=== PATIENT | female | born 1940 | race Caucasian/White ===

== ENCOUNTER 2017-08-09 12:41 | Observation (INO) ==
--- NOTE | 2017-08-09 12:52 | Emergency Department Note ---
Disposition Clinical Impression: Left hip pain Sciatica Qualifiers: Laterality: left Qualified Code(s): M54.32 - Sciatica, left side Fall Qualifiers: Encounter type: initial encounter Qualified Code(s): W19.XXXA - Unspecified fall, initial encounter Disposition: Admitted As Inpatient Condition: Good Forms: ED Satisfaction Letter Time of Disposition: 17:06 General Adult HPI - General Chief complaint: ED Back Pain/Injury Stated complaint: Back/hip pain Time Seen by Provider: 08/09/17 12:46 Source: patient, EMS Mode of arrival: EMS Limitations: no limitations Nursing Notes Reviewed: Yes Vital Signs Reviewed: Yes - History of Present Illness HPI Narrative: Patient presents emergency room by EMS for evaluation of a fall at home. Patient long-standing left-sided sciatica. Patient was going into the bathroom this morning and felt her leg give way I could always does. She went down to the ground landing on her left hip. Since then she has had persistent pain in that left hip. She also had some mild lower back pain. Patient denies any other symptoms. Denied any preceding symptoms including headache vision changes chest pain shortness of breath, nausea vomiting or diarrhea. Denies any recent illnesses fevers or chills. Denied any closed head injury or trauma this time. Denied being on any blood thinners at this point. Onset (ago): [employer] Location: left, lower extremity Radiation: non-radiation Pain Severity: moderate Quality: aching Consistency: constant Improves with: rest Worsens with: movement Associated symptoms: Reports: denies other symptoms Treatments Prior to Arrival: none - Related Data Home Medications Medication Instructions Recorded Confirmed Albuterol Sulfate [Albuterol 1 puff PO Q4H PRN 02/20/17 02/20/17 Inhaler] Aspirin Enteric Coated [Aspirin EC] 81 mg PO DAILY 02/20/17 02/20/17 Cholecalciferol (D-3) [Vitamin D] 5,000 unit PO DAILY 02/20/17 02/20/17 Diltiazem CD (24hr) [Cardizem CD] 120 mg PO DAILY 02/20/17 02/20/17 Lisinopril [Lisinopril] 2.5 mg PO DAILY 02/20/17 02/20/17 Multivits,Ca,Min/Iron/FA/Lycop 1 tab PO DAILY 02/20/17 02/20/17 [Centrum Men's Tablet] Phytonadione [Vitamin K] 100 mcg PO DAILY 02/20/17 02/20/17 Vitamin B Complex [B Complex] 1 tab PO DAILY 02/20/17 02/20/17 Previous Rx's Medication Instructions Recorded HYDROcodone/Acet 5/325 mg [[place] 1 tab PO Q6H PRN #28 tab 02/20/17 5-325 mg] Allergies Allergy/AdvReac Type Severity Reaction Status Date / Time No Known Allergies Allergy Verified 02/20/17 06:46 All systems ED: reviewed and negative except as stated. Review of Systems: As Per HPI Constitutional: Denies: fever, chills, weakness Cardiovascular: Denies: chest pain, palpitations, dyspnea on exertion Respiratory: Denies: cough, dyspnea Gastrointestinal: Denies: abdominal pain, nausea, vomiting, diarrhea Genitourinary: Denies: dysuria, frequency Musculoskeletal: Reports: back pain. Denies: neck pain Integumentary: Denies: rash Neurological: Denies: headache, weakness Past Medical History - Past Medical History Attestation: Yes The following information was validated with the patient. Source: patient Medical history: Reports: COPD, hyperlipidemia, hypertension, thyroid disease Psychiatric history: Reports: no psych history - Social History Smoking Status: Current every day smoker Smokeless Tobacco Status: No Alcohol use: Reports: none Drug use: Reports: none Physical Exam - General Limitations: no limitations General appearance: alert, in no apparent distress - Head Head exam: atraumatic, normocephalic, normal inspection - Eye Eye exam: Present: normal appearance, PERRL, EOMI - ENT ENT exam: normal exam, normal oropharynx, mucous membranes moist - Neck Neck exam: Present: normal inspection, full ROM, trachea midline - Chest Chest inspection: Present: normal inspection, symmetric chest wall rise - Respiratory Respiratory exam: Present: normal lung sounds bilaterally - Cardiovascular Cardiovascular exam: Present: regular rate, normal rhythm, normal heart sounds - Abdominal Exam Abdominal exam: Present: soft, Non-Tender, normal bowel sounds. Absent: tenderness, distention, guarding, rebound, rigidity, Merrill's sign, Rovsing's sign, tenderness at McBurney's Point - Extremities Exam Extremities exam: Present: normal inspection, full ROM, normal capillary refill. Absent: tenderness, pedal edema - Back Exam Back exam: Present: normal inspection, full ROM, tenderness, paraspinal tenderness, sciatic notch tenderness (L). Absent: CVA tenderness (R), CVA tenderness (L) - Neurological Exam Neurological exam: Present: alert, oriented X3, CN II-XII intact - Skin Skin exam: Present: warm, dry, intact, normal color Course Course Narrative: Patient was walking to the bathroom this morning and felt her legs give out. She went down hitting her left leg and lower back on the ground. Since then she has had persistent pain in her left hip and back. Patient is a history of a bad sciatica on the left lower extremity. She has numbness to the leg at this time. She does not have any gross deformity or injury. She does have the left leg held in contracture this point. She does not have any pain with palpation of the left hip socket at this point she does have some tenderness over the left sciatic notch. She does not have any reproducible numbness tingling or paresthesias to the extremities at this time despite the fact that she feels like there is a tingling sensation in her leg. The stomach does not appear to be infected she does have full range of motion spontaneously without any issue. Patient symptoms otherwise unremarkable. Patient has no signs of pelvic instability. She has normal neurologic evaluation in symptoms at this time. Patient denied any head injury or loss of consciousness. She remembers entire events prior to and after the fall. She is not currently on any blood thinners at this time. Disposition will be determined once full workup treatment course and evaluation are established and completed. Pain medication was provided by IV access during transported by EMS. Patient is otherwise clinically stable at this time. Disposition pending the full workup and evaluation. - Reevaluation(s) Reevaluation #1: Patient has negative imaging of the thoracic and lumbar spine along with left hip. Patient will be provided a repeat pain medication by mouth. No other acute abnormalities noted this time. Patient will be ambulatory 1 symptom control is better at this point. No acute bony abnormalities or fracture noted at this point. Time: 14:35 Reevaluation #2: Patient had pain with ambulation at this time. Patient will be reevaluated with CT imaging of the left hip. Disposition will be determined once his imaging modality is resulted. Oral pain medication was started this time. Time: 15:40 Reevaluation #3: Patient was unable to bear weight on the second attempt. This time. Patient be given IV pain medication this point admission process will be completed for further evaluation treatment. CT imaging is negative of the left hip. Patient is otherwise currently stable left-sided discomfort and pain. Hospitalist Dr. Álvarez. No other recommendations or issues noted. Patient is stable. Admission process will be completed this point patient is still denying any numbness tingling paresthesias bowel or bladder incontinence or saddle anesthesias to the lower extremities at this point. No critical concern at this time for cauda equina syndrome or spinal cord related injury. Time: 17:04 Vital Signs Temperature 97.4 F L 08/09/17 12:44 Pulse Rate 67 08/09/17 12:44 Respiratory Rate 18 08/09/17 12:44 Blood Pressure 147/104 08/09/17 12:44 O2 Sat by Pulse Oximetry 91 08/09/17 12:44 Temperature 97.4 F L 08/09/17 12:44 Pulse Rate 55 08/09/17 16:40 Respiratory Rate 18 08/09/17 16:40 Blood Pressure 149/79 08/09/17 16:40 O2 Sat by Pulse Oximetry 99 08/09/17 16:40 Oxygen Delivery Oxygen Delivery Aerosol Mask Medical Decision Making - MDM Narrative Medical decision making narrative: Left hip pain, mechanical fall, sciatica - Medical Records Medical records reviewed: Yes I reviewed the patient's medical records. - Lab Data Lab results reviewed: Yes I reviewed the patient's lab results. Result diagrams: 08/09/17 13:33 08/09/17 13:33 Lab Results 08/09/17 08/09/17 Range/Units 13:33 13:33 WBC 8.6 (4.3-11.1) K/mcL RBC 4.80 (3.82-4.97) M/mcL Hgb 14.3 (11.5-15.4) g/dL Hct 42.4 (35.3-44.9) % MCV 88.3 (83.0-100.0) fL MCH 29.8 (28.0-33.3) pg MCHC 33.7 (31.6-35.5) g/dL RDW 12.8 (11.5-14.5) % Plt Count 261 (140-400) K/mcL MPV 8.7 L (9.4-12.4) fL Immature Gran % 0.3 (0-4) % Seg Neutrophils % 64.3 % Lymphocytes % 29.2 % Monocytes % 4.8 % Eosinophils % 1.2 % Basophils % 0.2 % Neutrophils # 5.5 (1.6-8.9) K/mcL Lymphocytes # 2.5 (0.6-4.6) K/mcL Monocytes # 0.4 (0.0-1.3) K/mcL Eosinophils # 0.1 (0.0-0.6) K/mcL Basophils # 0.0 (0.0-0.2) K/mcL Sodium 140 (136-145) mEq/L Potassium 3.5 (3.5-5.1) mEq/L Chloride 107 (98-107) mEq/L Carbon Dioxide 28 (23-29) mEq/L BUN 22 (8-23) mg/dL Creatinine 0.75 (0.60-1.20) mg/dL Est GFR ( Amer) > 60 (> 60) Est GFR (Non-Af Amer) > 60 (> 60) BUN/Creatinine Ratio 29 H (6-26) Glucose 80 (70-105) mg/dL Calculated Osmolality 292 (280-300) Calcium 8.7 (8.6-10.3) mg/dL - Radiology Data Radiology results reviewed: Yes I reviewed the patient's radiology results. CT imaging of the thoracic lumbar spine are all unremarkable. CT imaging left hip is stable at this time and no signs of bony abnormality or fracture.
[2017-08-09 13:38] LABS: Basophils % 0.2 %; Eosinophils # 0.1 K/mcL (0.0-0.6); Eosinophils % 1.2 %; Hematocrit 42.4 % (35.3-44.9); Hemoglobin 14.3 g/dL (11.5-15.4); Immature Granulocytes % 0.3 % (0-4); Lymphocytes # 2.5 K/mcL (0.6-4.6); Lymphocytes % 29.2 %; Mean Corpuscular HGB Conc 33.7 g/dL (31.6-35.5); Mean Corpuscular Hemoglobin 29.8 pg (28.0-33.3); Mean Corpuscular Volume 88.3 fL (83.0-100.0); Mean Platelet Volume 8.7 fL (9.4-12.4); Monocytes # 0.4 K/mcL (0.0-1.3); Monocytes % 4.8 %; Neutrophils # 5.5 K/mcL (1.6-8.9); Platelet Count 261 K/mcL (140-400); Red Cell Distribution Width 12.8 % (11.5-14.5); Segmented Neutrophils % 64.3 %
[2017-08-09 13:54] LABS: BUN/Creatinine Ratio 29 (6-26); Blood Urea Nitrogen 22 mg/dL (8-23); Calcium 8.7 mg/dL (8.6-10.3); Carbon Dioxide 28 mEq/L (23-29); Chloride 107 mEq/L (98-107); Glucose 80 mg/dL (70-105); Osmolality,Calculated 292 (280-300); Potassium 3.5 mEq/L (3.5-5.1); Sodium 140 mEq/L (136-145); eGFR For African Americans > 60 (> 60); eGFR For Non-African Americans > 60 (> 60)
[2017-08-09] MEDS ORDERED: *HR* HYDROcodone/Acet 5/325 mg TABLET PO ONE (14:17)
[2017-08-09] MEDS ORDERED: Ipratropium/Albuterol Neb 3 ML IH ONE (16:23)
[2017-08-09] MEDS ORDERED: Gabapentin 100 MG CAPSULE PO ONE (16:32)
[2017-08-09] MEDS ORDERED: Ketorolac 15 MG/ML VIAL IVP ONE (17:02)
[2017-08-09] MEDS ORDERED: Naloxone 0.4 MG/ML INJ IVP PRN (17:33)
[2017-08-09] MEDS ORDERED: Ipratropium/Albuterol Neb 3 ML IH PRN (17:41)
--- NOTE | 2017-08-09 18:07 | Internal Med History&Physical ---
<Sami Pennington - Last Filed: 08/09/17 18:57> Date of Encounter: 08/09/17 Time of Encounter: 17:00 Assessment and Plan (1) Fall Current visit: Yes Status: Acute Acute fall today d/t numbness/tingling in LLE and pain in left hip. Denies hx of falls. Hx of chronic sciatica and fusion of T8-L1. CT of the thoracic spine today shows no acute thoracic or lumbar spine abnormality. Chronic bilateral L5 pars defect with grade 1 anterolisthesis of L5 on S1. CXR of the pelvis shows no acute osseous abnormality. XR of the left shoulder shows no acute osseous abnormality. Minimal degenerative change. Suspected left upper lobe pulmonary nodule. D/t LLE weakness, MRI of head/brain ordered to r/o CVA/ ischemia. Consider Neurology consult based on MRI results and focal LLE weakness /numbness/tingling. Stair-step pain medications for pain mgmt. Falls/safety precautions, up with assist, bed rest w/bedside commode w/assist only. PT/OT consults ordered to assess for possible rehabilitation needs. Pt. discussed w/ Dr. Álvarez who agrees w/plan of care. Pt. is moderate risk for further morbidity d/ t current fall and sx, LLE numbness and tingling, hx, and risk factors including current tobacco abuse. Observation. Qualifiers: Encounter type: initial encounter Qualified Code(s): W19.XXXA - Unspecified fall, initial encounter (2) Left hip pain Current visit: Yes Status: Acute Acute on chronic pain in left hip r/t chronic sciatica. Stair-step pain medications for pain mgmt. PT/OT consults ordered to assess for rehabilitation needs. Falls/safety precautions. (3) Numbness and tingling of left leg Current visit: Yes Status: Acute Acute on chronic left leg numbness and tingling that pt. attributes to sciatica hx. LLE became weak today causing pt. to fall. No other focal weakness or neuro sx in UEs or RLE. Hx of fusion of T8-L1. MRI of head/brain ordered to r/o CVA/ ischemia. Consider Neurology consult based on MRI results. (4) COPD (chronic obstructive pulmonary disease) Current visit: Yes Status: Chronic Hx of chronic COPD. Stable. Lungs clear on auscultation. DuoNebs Q6HR PRN. Supplemental O2 w/titration and SpO2 monitoring PRN. Qualifiers: COPD type: unspecified COPD Qualified Code(s): J44.9 - Chronic obstructive pulmonary disease, unspecified (5) HTN (hypertension) Current visit: Yes Status: Chronic Hx of chronic HTN. Monitor pt. and VS. Continue pts. Cardizem and lisinopril. Qualifiers: Hypertension type: essential hypertension Qualified Code(s): I10 - Essential (primary) hypertension (6) HLD (hyperlipidemia) Current visit: Yes Status: Chronic Hx of chronic HLD but pt. is currently not on statin. Lipid panel in a.m. labs. Consider adding Lipitor to home meds based on lipid panel results. Qualifiers: Hyperlipidemia type: pure hypercholesterolemia Qualified Code(s): E78.00 - Pure hypercholesterolemia, unspecified; E78.0 - Pure hypercholesterolemia (7) Thyroid disease Current visit: Yes Status: Chronic Hx of chronic thyroid disease. TSH and Free T4 ordered. Continue pts. Synthroid. (8) Sciatica Current visit: Yes Status: Chronic Hx of chronic sciatica affecting left hip and LLE. Stair-step pain medications ordered for pain mgmt. PT/OT consults ordered. Qualifiers: Laterality: left Qualified Code(s): M54.32 - Sciatica, left side (9) Tobacco abuse Current visit: Yes Status: Chronic Hx of chronic tobacco abuse. Smokes 1/2 PPD. Denies need for nicotine patch currently and is presently attempting to cut down on her smoking. Will add nicotine patch if pt. requests. (10) DVT prophylaxis Current visit: Yes Status: Acute Heparin 5,000 units SQ Q12 for DVT prophylaxis. Monitor pt. for signs of bleeding. Internal Medicine - H&P: HPI Chief complaint: Fall Admitted From: Emergency Dept Plans for Post Hospital Care: Home History of present illness: Ms. Torre is a 77 year old female w/PMH of COPD, HLD, HTN, and thyroid disease presents from the ED with chief complaint of fall that occurred this morning. Patient states she ambulated to her bathroom and experienced pain and numbness in her left leg which made her leg give out w/o warning. States she tried to catch her self on the bed but fell to the floor. Denies previous falls. Denies dizziness, lightheadedness, syncope, or neuro sx. Hx of left-sided sciatica and pain in LLE. Hx of lower back pain. Reports numbness and tingling in LLE but denies recent illness, fever, chills, nausea, vomiting, headache, changes in vision, unusual bleeding, abdominal pain, diarrhea, constipation, chest pain, palpitations, dizziness, lightheadedness, pre-syncope, or syncope. Past Med Surg Social Fam HX - Past Medical History Source: patient, old records reviewed, obtained from family Medical history: COPD, hyperlipidemia, hypertension, thyroid disease Psychiatric history: no psych history - Past Surgical History Surgical History: orthopedic, other (Fusion from T8-L1. Left T12 pedicle screw medial to pedicle. ) - Social History Smoking Status: Current every day smoker Packs per day: 1/2 PPD Smokeless Tobacco Status: No Alcohol use: none Drug use: none Occupational status: employed Current living situation: Home, With Family Activity Level: Independent ambulation Recent Out of Country Travel Within the Last 8 Weeks: No Exposure or Possible Exposure to Illness During Travel: No - Family History Father Race: Family Member Ethnicity: Non- Living Status: Age at : 64 Cause of : Colon cancer Hx Family Cancer: Yes (Colon) Mother Race: Family Member Ethnicity: Non- Living Status: Age at : 95 Cause of : Old age Hx Family Cardiac Disorders: Yes (CVA) Hx Family Neurologic Disorders: Yes (CVA) Sister Race: Family Member Ethnicity: Non- Living Status: Age at : 69 Cause of : CT Hx Family Cardiac Disorders: Yes (CT) Hx Family Endocrine Disorder: Yes (DM) Internal Medicine - H&P: Meds Albuterol Sulfate [Albuterol Inhaler] 1 puff PO Q4H PRN 02/20/17 [History] Aspirin Enteric Coated [Aspirin EC] 81 mg PO DAILY 02/20/17 [History] Cholecalciferol (D-3) [Vitamin D] 5,000 unit PO DAILY 02/20/17 [History] Diltiazem CD (24hr) [Cardizem CD] 120 mg PO DAILY 02/20/17 [History] Lisinopril [Lisinopril] 2.5 mg PO DAILY 02/20/17 [History] Multivits,Ca,Min/Iron/FA/Lycop [Centrum Men's Tablet] 1 tab PO DAILY 02/20/17 [ History] Phytonadione [Vitamin K] 100 mcg PO DAILY 02/20/17 [History] Vitamin B Complex [B Complex] 1 tab PO DAILY 02/20/17 [History] 3 Allergy/AdvReac Type Severity Reaction Status Date / Time No Known Allergies Allergy Verified 08/09/17 17:20 All Systems PM: A 10-system review of systems was performed and is negative for pertinent findings except as documented above in the HPI. - Constitutional Constitutional: as per HPI, weakness (in LLE), no chills, no fever(s), no night sweats - EENT Eyes: no change in vision, no discharge, no pain, no photophobia Ears: no ear discharge, no ear pain, no tinnitus Nose, mouth and throat: no dysphagia, no nasal discharge, no neck pain, no sore throat - Breasts Breasts: as per HPI - Cardiovascular Cardiovascular ROS IM: no chest pain, no diaphoresis, no dyspnea, no lightheadedness, no palpitations, no syncope - Respiratory Respiratory: no cough, no dyspnea, no wheezing, no excessive phlegm production - Gastrointestinal Gastrointestinal: no abdominal pain, no diarrhea, no hematemesis, no hematochezia, no melena, no nausea, no vomiting - Genitourinary Genitourinary: no change in urinary stream, no dysuria, no flank pain, no hematuria Menstruation: as per HPI - Musculoskeletal Musculoskeletal ROS IM: as per HPI, back pain, muscle weakness (LLE), numbness ( LLE), tingling (LLE) - Integumentary Integumentary IM: no rash, no unusual bruising - Neurological Neurological ROS: as per HPI, numbness (LLE), tingling (LLE), weakness (LLE), no confusion, no convulsions, no focal weakness, no tremor(s) - Psychiatric Psychiatric: as per HPI - Endocrine Endocrine IM: as per HPI - Hematologic/Lymphatic Hematologic/Lymphatic: no easy bruising - Allergic/Immunologic Allergic/Immunologic: as per HPI - Constitutional Vitals: Temp Pulse Resp BP Pulse Ox 97.7 F 60 20 135/80 92 08/09/17 17:42 08/09/17 17:42 08/09/17 17:42 08/09/17 17:42 08/09/17 17:45 General appearance: Present: cooperative, mild distress (Pain w/movement of left leg), A&O X 3, pleasant, answers questions appropriately - Head Head exam: Present: atraumatic, normocephalic - Eye Eye exam: Present: PERRL, conjuntiva pink, sclera anicteric Pupils: Present: PERRL - ENT ENT exam: Present: normal exam - Neck Neck exam general surgery: Present: normal inspection, supple, trachea midline. Absent: lymphadenopathy - Respiratory Respiratory exam: Present: CTAB. Absent: accessory muscle use, rales, rhonchi, wheezes - Cardiovascular Cardiovascular exam: Present: bradycardia, +S1, +S2 - GI/Abdominal GI/Abdominal exam: Present: normal bowel sounds, soft, no peritoneal signs. Absent: distended, tenderness - Rectal Rectal exam: Present: deferred - Additional comments: exam deferred. - Extremities Exam Extremities exam: Present: warm, radial pulses palpable and symmetrical. Absent : calf tenderness, cyanotic, pedal edema - Back Exam Back exam: Present: normal inspection - Neurological Exam Neurological exam: Present: CN II-XII intact, oriented X3, no focal deficits. Absent: pronater drift, facial droop, speech deficit - Psychiatric Psychiatric exam: Present: normal affect, normal mood - Skin Skin exam: Present: dry, intact Internal Med - H&P Results - Labs CBC & Chem 7: 08/09/17 13:33 08/09/17 13:33 - EKG Data EKG shows normal: sinus rhythm Rate: bradycardia - EKG Data Prior EKG available for review: yes EKG comments: 08/09/17 18:18 EKG dated 12/29/16 shows sinus rhythm with RBBB and left anterior fascicular block. EKG dated 08/09/17 shows sinus bradycardia with marked left axis deviation and RBBB. - Diagnostic Studies Other Images Additional comments: Impressions Lumbar Spine CT 08/09/17 12:49 IMPRESSION: 1. No acute thoracic or lumbar spine abnormality. 2. Chronic bilateral L5 pars defects with grade 1 anterolisthesis of L5 on S1. 3. Status post posterior fusion from T8 through L1. The left T12 pedicle screw lies medial to the pedicle but is unchanged from 2011. D/ / Andrae Nunez MD / Andrae Nunez MD Interpreting Provider: Andrae Nunez MD Pelvis X-Ray 08/09/17 12:49 IMPRESSION: No acute osseous abnormality. D/ / Andrae Nunez MD / Andrae Nunez MD Interpreting Provider: Andrae Nunez MD Thoracic Spine CT 08/09/17 12:49 IMPRESSION: 1. No acute thoracic or lumbar spine abnormality. 2. Chronic bilateral L5 pars defects with grade 1 anterolisthesis of L5 on S1. 3. Status post posterior fusion from T8 through L1. The left T12 pedicle screw lies medial to the pedicle but is unchanged from 2012. D/ / Andrae Nunez MD / Andrae Nunez MD Interpreting Provider: Andrae Nunez MD Shoulder X-Ray 08/09/17 14:18 IMPRESSION: 1. No acute osseous abnormality. Minimal degenerative change. 2. Suspected left upper lobe pulmonary nodule. CT imaging of the chest is suggested without contrast. D/ / 08/09/2017 14:54:44 Abiel Carmichael MD / michele Interpreting Provider: Abiel Carmichael MD Hip CT 08/09/17 15:14 IMPRESSION: No acute traumatic injury of the left hip. Mild left hip osteoarthritis. D/ / 08/09/2017 16:10:03 Bakari Menon MD / michele Interpreting Provider: Bakari Menon MD <Yony Álvarez - Last Filed: 08/10/17 07:30> Date of Encounter: 08/10/17 Internal Medicine - H&P: HPI History of present illness: Ms. Torre is a 77 year old female All Systems PM: A 10-system review of systems was performed and is negative for pertinent findings except as documented above in the HPI. - Constitutional Vitals: Temp Pulse Resp BP Pulse Ox 97.8 F 50 14 116/66 96 08/10/17 06:40 08/10/17 06:40 08/10/17 06:40 08/10/17 06:40 08/10/17 06:40 Internal Med - H&P Results - Labs CBC & Chem 7: 08/09/17 13:33 08/09/17 13:33 - Impressions ITS Impressions Brain MRI 08/09/17 18:47 IMPRESSION: No acute intracranial abnormality. Mild multifocal small-vessel ischemic change bilaterally D/ / Robson Delacruz / Robson Delacruz Interpreting Provider: Robson Delacruz - Attending Attestation Patient was seen and examined 6 PM on August 09 independently. Doing well denies chest pain shortness of breasts. Providers is stable, alert oriented 3 , also clear heart rate regular. Abdominal is soft. She has left lower extremity weakness and a numbness persistently. the case discussed with physician law office assistant, I agree with H&P
[2017-08-09] MEDS: *HR* HYDROcodone/Acet 7.5/325 mg TABLET PO PRN (20:02)
[2017-08-10] MEDS: Acetaminophen 325 MG TABLET PO PRN ×2 (00:42→14:17)
[2017-08-10] MEDS: *HR* OxyCODONE/APAP 10/325 TABLET PO PRN ×3 (03:40→16:41)
[2017-08-10] MEDS: *HR* Heparin 5,000 UNIT/ML VIAL SQ SCH ×2 (05:42→17:39)
[2017-08-10] MEDS: Multivit/Ca/Min/Fe/FA 1 TAB TABLET PO SCH (07:51)
[2017-08-10] MEDS: Aspirin Enteric Coated 81 MG Tablet PO SCH (07:51)
[2017-08-10] MEDS: (Phytonadione [Vitamin K] 100 MCG) PO SCH (07:51)
[2017-08-10] MEDS: Diltiazem CD (24hr) 120 MG CAPSULE PO SCH (07:51)
[2017-08-10] MEDS: Cholecalciferol (D-3) 1,000 UNIT TABLET PO SCH (07:51)
[2017-08-10] MEDS: Vitamin B Complex/Vit C/Vit E 1 EACH TABLET PO SCH (07:51)
[2017-08-10 08:24] LABS: Basophils % 0.2 %; Eosinophils # 0.1 K/mcL (0.0-0.6); Eosinophils % 1.4 %; Hematocrit 42.1 % (35.3-44.9); Hemoglobin 13.8 g/dL (11.5-15.4); Immature Granulocytes % 0.2 % (0-4); Lymphocytes # 2.7 K/mcL (0.6-4.6); Mean Corpuscular HGB Conc 32.8 g/dL (31.6-35.5); Mean Corpuscular Hemoglobin 29.1 pg (28.0-33.3); Mean Corpuscular Volume 88.8 fL (83.0-100.0); Mean Platelet Volume 10.2 fL (9.4-12.4); Monocytes # 0.4 K/mcL (0.0-1.3); Monocytes % 4.4 %; Neutrophils # 5.4 K/mcL (1.6-8.9); Platelet Count 234 K/mcL (140-400); Red Blood Count 4.74 M/mcL (3.82-4.97); Red Cell Distribution Width 13.1 % (11.5-14.5); Segmented Neutrophils % 62.8 %
[2017-08-10 08:42] LABS: Alanine Aminotransferase 5 Units/L (7-52); Albumin 3.5 g/dL (3.5-5.7); Albumin/Globulin Ratio 1.2 (1.1-2.2); Alkaline Phosphatase 67 Units/L (34-104); Aspartate Amino Transferase 11 Units/L (13-39); BUN/Creatinine Ratio 27 (6-26); Bilirubin,Total 0.3 mg/dL (0.3-1.0); Blood Urea Nitrogen 24 mg/dL (8-23); Calcium 8.9 mg/dL (8.6-10.3); Carbon Dioxide 33 mEq/L (23-29); Chloride 102 mEq/L (98-107); Chol/HDL Ratio 3.9 (0-4.9); Cholesterol 182 mg/dL (< 200); Glucose 79 mg/dL (70-105); HDL Cholesterol 47 mg/dL (40-59); LDL Cholesterol,Calculated 111 mg/dL (0-99); Magnesium 1.8 mg/dL (1.6-2.6); Osmolality,Calculated 289 (280-300); Potassium 4.2 mEq/L (3.5-5.1); Sodium 138 mEq/L (136-145); Total Protein 6.5 g/dL (6.4-8.9); Triglycerides 119 mg/dL (< 150); eGFR For African Americans > 60 (> 60); eGFR For Non-African Americans > 60 (> 60)
[2017-08-10 10:25] LABS: Thyroid Stimulating Hormone 6.251 mcIU/mL (0.340-5.600)
--- NOTE | 2017-08-10 16:12 | Internal Med Progress Note ---
Date of Encounter: 08/10/17 Time of Encounter: 16:09 - Assessment and plan (1) Fall Current Visit: Yes Status: Acute Assessment and plan: Acute fall yesterday due to numbness/tingling in LLE and pain in left hip. She denies history of falls. She has history of chronic sciatica and fusion of T8- L1. CT of the thoracic spine yesterday showed no acute thoracic or lumbar spine abnormality. Chronic bilateral L5 pars defect with grade 1 anterolisthesis of L5 on S1. CXR of the pelvis showed no acute osseous abnormality. XR of the left shoulder shows no acute osseous abnormality; minimal degenerative change. MRI brain showed no CVA or acute abnormality. No focal neurological deficits at this time. Continue stair-step pain medications for pain management. Falls/safety precautions, up with assist, bed rest w/ bedside commode w/assist only. PT/OT consulted to assess for possible rehabilitation needs. Qualifiers: Encounter type: initial encounter Qualified Code(s): W19.XXXA - Unspecified fall, initial encounter (2) Left hip pain Current Visit: Yes Status: Acute Assessment and plan: Acute on chronic pain likely secondary to sciatica. Continue stair-step pain medications for pain management. PT/OT consulted to assess for rehabilitation needs. Continue fall/safety precautions. (3) Numbness and tingling of left leg Current Visit: Yes Status: Acute Assessment and plan: Likely secondary to sciatica. MRI head with no acute abnormalities. No neurology consult indicated at this time. (4) Sciatica Current Visit: Yes Status: Chronic Assessment and plan: Mangement as per above. Qualifiers: Laterality: left Qualified Code(s): M54.32 - Sciatica, left side (5) COPD (chronic obstructive pulmonary disease) Current Visit: Yes Status: Chronic Assessment and plan: Continue home medications. Qualifiers: COPD type: unspecified COPD Qualified Code(s): J44.9 - Chronic obstructive pulmonary disease, unspecified (6) HLD (hyperlipidemia) Current Visit: Yes Status: Chronic Assessment and plan: LDL = 111. Start low dose simvastatin 20 mg QHS. Qualifiers: Hyperlipidemia type: pure hypercholesterolemia Qualified Code(s): E78.00 - Pure hypercholesterolemia, unspecified; E78.0 - Pure hypercholesterolemia (7) HTN (hypertension) Current Visit: Yes Status: Chronic Assessment and plan: Continue home medications. Qualifiers: Hypertension type: essential hypertension Qualified Code(s): I10 - Essential (primary) hypertension (8) Thyroid disease Current Visit: Yes Status: Chronic Assessment and plan: Elevate TSH with normal free T4. Continue home synthroid. (9) Tobacco abuse Current Visit: Yes Status: Chronic Assessment and plan: Counselled on smoking cessation. Not interested in nicotine patch at this time. (10) DVT prophylaxis Current Visit: Yes Status: Acute Assessment and plan: Continue SC heparin. - Time Spent With Patient less than 15 minutes - Subjective Interval history: Patient had no acute events overnight. She states that she is better this AM. Pain is much better controlled with Tylenol and Percocet. She denies any focal neurological deficits. She has no new complaints. - Constitutional Vitals: Temp Pulse Resp BP Pulse Ox 97.5 F L 51 18 120/57 95 08/10/17 14:31 08/10/17 14:31 08/10/17 14:31 08/10/17 14:31 08/10/17 14:31 General appearance: Present: cooperative, A&O X 3, pleasant, no acute distress, answers questions appropriately - Respiratory Respiratory exam: Present: CTAB. Absent: accessory muscle use, rales, rhonchi, wheezes Additional comments: Normal WOB - Cardiovascular Cardiovascular exam: Present: RRR, +S1, +S2. Absent: diastolic murmur, gallop, rubs, systolic murmur Additional comments: No BLE edema - GI/Abdominal GI/Abdominal exam: Present: normal bowel sounds, soft. Absent: distended, hepatomegaly, mass, splenomegaly, tenderness - Psychiatric Psychiatric exam: Present: normal affect, normal mood. Absent: anxious, depressed - Skin Skin exam: Present: dry, intact, warm. Absent: cyanosis, rash Internal Medicine: Result - Labs CBC & Chem 7: 08/10/17 07:30 08/10/17 07:30 Labs: Short CBC 08/10/17 Range/Units 07:30 WBC 8.6 (4.3-11.1) K/mcL Hgb 13.8 (11.5-15.4) g/dL Hct 42.1 (35.3-44.9) % Plt Count 234 (140-400) K/mcL Neutrophils # 5.4 (1.6-8.9) K/mcL BMP 08/10/17 07:30 Sodium 138 Potassium 4.2 Chloride 102 Carbon Dioxide 33 H BUN 24 H Creatinine 0.88 Glucose 79 Calcium 8.9 Liver Function 08/10/17 Range/Units 07:30 Total Bilirubin 0.3 (0.3-1.0) mg/dL AST 11 L (13-39) Units/L ALT 5 L (7-52) Units/L Alkaline Phosphatase 67 (34-104) Units/L Albumin 3.5 (3.5-5.7) g/dL - Impressions Impressions Brain MRI 08/09/17 18:47 IMPRESSION: No acute intracranial abnormality. Mild multifocal small-vessel ischemic change bilaterally D/ / Robson Delacruz / Robson Delacruz Interpreting Provider: Robson Delacruz Consult Discharge Plan - Plan Referrals: Bernard Lr MD [Primary Care Provider] -
[2017-08-10] MEDS ORDERED: Ondansetron 4 MG/2 ML VIAL IVP PRN (18:30)
[2017-08-10] MEDS: *HR* HYDROcodone/Acet 7.5/325 mg TABLET PO PRN (21:30)
[2017-08-11] MEDS: *HR* OxyCODONE/APAP 10/325 TABLET PO PRN ×3 (00:43→16:32)
[2017-08-11] MEDS: *HR* Heparin 5,000 UNIT/ML VIAL SQ SCH ×2 (05:34→18:09)
[2017-08-11] MEDS: *HR* HYDROcodone/Acet 7.5/325 mg TABLET PO PRN ×3 (05:38→21:17)
[2017-08-11 07:34] LABS: Basophils % 0.4 %; Eosinophils # 0.2 K/mcL (0.0-0.6); Eosinophils % 2.4 %; Hematocrit 41.3 % (35.3-44.9); Hemoglobin 13.5 g/dL (11.5-15.4); Immature Granulocytes % 0.6 % (0-4); Immature Platelets 4.9 % (1.1-6.1); Lymphocytes # 2.3 K/mcL (0.6-4.6); Mean Corpuscular HGB Conc 32.7 g/dL (31.6-35.5); Mean Corpuscular Hemoglobin 29.5 pg (28.0-33.3); Mean Corpuscular Volume 90.4 fL (83.0-100.0); Mean Platelet Volume 10.6 fL (9.4-12.4); Monocytes # 0.3 K/mcL (0.0-1.3); Monocytes % 4.7 %; Neutrophils # 4.1 K/mcL (1.6-8.9); Platelet Count 216 K/mcL (140-400); Red Blood Count 4.57 M/mcL (3.82-4.97); Segmented Neutrophils % 58.9 %
[2017-08-11 07:53] LABS: Alanine Aminotransferase 6 Units/L (7-52); Albumin 3.4 g/dL (3.5-5.7); Albumin/Globulin Ratio 1.2 (1.1-2.2); Alkaline Phosphatase 63 Units/L (34-104); Aspartate Amino Transferase 12 Units/L (13-39); BUN/Creatinine Ratio 25 (6-26); Bilirubin,Total 0.3 mg/dL (0.3-1.0); Blood Urea Nitrogen 21 mg/dL (8-23); Carbon Dioxide 32 mEq/L (23-29); Chloride 101 mEq/L (98-107); Globulin 2.9 g/dL (2.4-3.5); Glucose 78 mg/dL (70-105); Osmolality,Calculated 290 (280-300); Potassium 3.9 mEq/L (3.5-5.1); Sodium 139 mEq/L (136-145); Total Protein 6.3 g/dL (6.4-8.9); eGFR For African Americans > 60 (> 60); eGFR For Non-African Americans > 60 (> 60)
[2017-08-11] MEDS: Multivit/Ca/Min/Fe/FA 1 TAB TABLET PO SCH (08:51)
[2017-08-11] MEDS: Diltiazem CD (24hr) 120 MG CAPSULE PO SCH (08:51)
[2017-08-11] MEDS: Cholecalciferol (D-3) 1,000 UNIT TABLET PO SCH (08:51)
[2017-08-11] MEDS: Vitamin B Complex/Vit C/Vit E 1 EACH TABLET PO SCH (08:54)
[2017-08-11] MEDS: Aspirin Enteric Coated 81 MG Tablet PO SCH (08:54)
[2017-08-11] MEDS: (Phytonadione [Vitamin K] 100 MCG) PO SCH (08:54)
--- NOTE | 2017-08-11 12:32 | Electrocardiograph Report ---
[address] [place], [place] [address] Test Date: 2017-08-09 Pat Name: Glenda Torre Department: 103 Room: 3A42 Gender: F [employer]: TMR : 1940 Requested By: Km Bazzi Order Number: [id number] Reading MD: Alfredo Goldman Measurements Intervals [place] Rate: 56 P: 90 NM: 174 QRS: -38 QRSD: 134 T: 49 QT: 422 QTc: 413 Interpretive Statements SINUS BRADYCARDIA MARKED LEFT AXIS DEVIATION RIGHT BUNDLE BRANCH BLOCK Electronically Signed On 08-11-2017 12:30:57 EDT by Alfredo Goldman
--- NOTE | 2017-08-11 18:39 | Internal Med Progress Note ---
Date of Encounter: 08/11/17 Time of Encounter: 18:37 - Assessment and plan (1) Fall Current Visit: Yes Status: Acute Assessment and plan: Acute fall yesterday due to numbness/tingling in LLE and pain in left hip. She denies history of falls. She has history of chronic sciatica and fusion of T8- L1. CT of the thoracic spine yesterday showed no acute thoracic or lumbar spine abnormality. Chronic bilateral L5 pars defect with grade 1 anterolisthesis of L5 on S1. CXR of the pelvis showed no acute osseous abnormality. XR of the left shoulder shows no acute osseous abnormality; minimal degenerative change. MRI brain showed no CVA or acute abnormality. No focal neurological deficits at this time. Continue stair-step pain medications for pain management. Falls/safety precautions, up with assist, bed rest w/ bedside commode w/assist only. PT/OT consulted to assess for possible rehabilitation needs. SW working on placement. Qualifiers: Encounter type: initial encounter Qualified Code(s): W19.XXXA - Unspecified fall, initial encounter (2) Left hip pain Current Visit: Yes Status: Acute Assessment and plan: Acute on chronic pain likely secondary to sciatica. Continue stair-step pain medications for pain management. PT/OT consulted to assess for rehabilitation needs. Continue fall/safety precautions. SW working on placement. (3) Numbness and tingling of left leg Current Visit: Yes Status: Acute Assessment and plan: Likely secondary to sciatica. MRI head with no acute abnormalities. No neurology consult indicated at this time. (4) Sciatica Current Visit: Yes Status: Chronic Assessment and plan: Mangement as per above. Qualifiers: Laterality: left Qualified Code(s): M54.32 - Sciatica, left side (5) COPD (chronic obstructive pulmonary disease) Current Visit: Yes Status: Chronic Assessment and plan: Continue home medications. Qualifiers: COPD type: unspecified COPD Qualified Code(s): J44.9 - Chronic obstructive pulmonary disease, unspecified (6) HLD (hyperlipidemia) Current Visit: Yes Status: Chronic Assessment and plan: LDL = 111. Started low dose simvastatin 20 mg QHS yesterday. Qualifiers: Hyperlipidemia type: pure hypercholesterolemia Qualified Code(s): E78.00 - Pure hypercholesterolemia, unspecified; E78.0 - Pure hypercholesterolemia (7) HTN (hypertension) Current Visit: Yes Status: Chronic Assessment and plan: Continue home medications. Qualifiers: Hypertension type: essential hypertension Qualified Code(s): I10 - Essential (primary) hypertension (8) Thyroid disease Current Visit: Yes Status: Chronic Assessment and plan: Elevated TSH with normal free T4. Continue home synthroid. (9) Tobacco abuse Current Visit: Yes Status: Chronic Assessment and plan: Counselled on smoking cessation. Not interested in nicotine patch at this time. (10) DVT prophylaxis Current Visit: Yes Status: Acute Assessment and plan: Continue SC heparin. - Time Spent With Patient less than 15 minutes - Subjective Interval history: Patient had no acute events overnight. She states she is doing "OK" this AM except for left leg pain. Pain is controlled with Tylenol and Percocet. She denies any focal neurological deficits. She has no new complaints. - Constitutional Vitals: Temp Pulse Resp BP Pulse Ox 97.7 F 59 14 120/76 92 08/11/17 14:50 08/11/17 14:50 08/11/17 14:50 08/11/17 14:50 08/11/17 14:50 General appearance: Present: cooperative, A&O X 3, pleasant, no acute distress, answers questions appropriately - Respiratory Respiratory exam: Present: CTAB. Absent: accessory muscle use, rales, rhonchi, wheezes Additional comments: Normal WOB - Cardiovascular Cardiovascular exam: Present: RRR, +S1, +S2. Absent: diastolic murmur, gallop, rubs, systolic murmur Additional comments: No BLE edema - GI/Abdominal GI/Abdominal exam: Present: normal bowel sounds, soft. Absent: distended, hepatomegaly, mass, splenomegaly, tenderness - Psychiatric Psychiatric exam: Present: normal affect, normal mood. Absent: anxious, depressed - Skin Skin exam: Present: dry, intact, warm. Absent: cyanosis, rash Internal Medicine: Result - Labs CBC & Chem 7: 08/11/17 05:56 08/11/17 05:56 Labs: Short CBC 08/11/17 Range/Units 05:56 WBC 7.0 (4.3-11.1) K/mcL Hgb 13.5 (11.5-15.4) g/dL Hct 41.3 (35.3-44.9) % Plt Count 216 (140-400) K/mcL Neutrophils # 4.1 (1.6-8.9) K/mcL BMP 08/11/17 05:56 Sodium 139 Potassium 3.9 Chloride 101 Carbon Dioxide 32 H BUN 21 Creatinine 0.84 Glucose 78 Calcium 9.0 Liver Function 08/11/17 Range/Units 05:56 Total Bilirubin 0.3 (0.3-1.0) mg/dL AST 12 L (13-39) Units/L ALT 6 L (7-52) Units/L Alkaline Phosphatase 63 (34-104) Units/L Albumin 3.4 L (3.5-5.7) g/dL Consult Discharge Plan - Plan Referrals: Bernard Lr MD [Primary Care Provider] -
[2017-08-12] MEDS: *HR* Heparin 5,000 UNIT/ML VIAL SQ SCH (05:48)
[2017-08-12 05:58] LABS: Basophils % 0.2 %; Eosinophils # 0.2 K/mcL (0.0-0.6); Eosinophils % 1.6 %; Hematocrit 41.6 % (35.3-44.9); Immature Granulocytes % 0.2 % (0-4); Lymphocytes # 1.9 K/mcL (0.6-4.6); Lymphocytes % 21.2 %; Mean Corpuscular HGB Conc 33.7 g/dL (31.6-35.5); Mean Corpuscular Hemoglobin 29.7 pg (28.0-33.3); Mean Corpuscular Volume 88.3 fL (83.0-100.0); Mean Platelet Volume 10.5 fL (9.4-12.4); Monocytes # 0.3 K/mcL (0.0-1.3); Monocytes % 3.6 %; Neutrophils # 6.7 K/mcL (1.6-8.9); Platelet Count 217 K/mcL (140-400); Red Blood Count 4.71 M/mcL (3.82-4.97); Red Cell Distribution Width 12.9 % (11.5-14.5); Segmented Neutrophils % 73.2 %
[2017-08-12 06:07] LABS: Alanine Aminotransferase 7 Units/L (7-52); Albumin 3.3 g/dL (3.5-5.7); Albumin/Globulin Ratio 1.1 (1.1-2.2); Alkaline Phosphatase 63 Units/L (34-104); Aspartate Amino Transferase 14 Units/L (13-39); BUN/Creatinine Ratio 24 (6-26); Bilirubin,Total 0.3 mg/dL (0.3-1.0); Blood Urea Nitrogen 20 mg/dL (8-23); Calcium 8.8 mg/dL (8.6-10.3); Carbon Dioxide 30 mEq/L (23-29); Chloride 102 mEq/L (98-107); Glucose 82 mg/dL (70-105); Osmolality,Calculated 286 (280-300); Potassium 4.1 mEq/L (3.5-5.1); Sodium 137 mEq/L (136-145); Total Protein 6.3 g/dL (6.4-8.9); eGFR For African Americans > 60 (> 60); eGFR For Non-African Americans > 60 (> 60)
[2017-08-12] MEDS: (Phytonadione [Vitamin K] 100 MCG) PO SCH (07:49)
[2017-08-12] MEDS: Diltiazem CD (24hr) 120 MG CAPSULE PO SCH (07:49)
[2017-08-12] MEDS: Cholecalciferol (D-3) 1,000 UNIT TABLET PO SCH (07:50)
[2017-08-12] MEDS: Multivit/Ca/Min/Fe/FA 1 TAB TABLET PO SCH (07:50)
[2017-08-12] MEDS: *HR* HYDROcodone/Acet 7.5/325 mg TABLET PO PRN ×2 (07:50→15:46)
[2017-08-12] MEDS: Vitamin B Complex/Vit C/Vit E 1 EACH TABLET PO SCH (07:50)
[2017-08-12] MEDS: Aspirin Enteric Coated 81 MG Tablet PO SCH (07:50)
[2017-08-12] MEDS: Acetaminophen 325 MG TABLET PO PRN (12:30)
--- NOTE | 2017-08-12 12:58 | Discharge Summary ---
- NOTES TO OUTPATIENT PROVIDER Notes to Outpatient Provider: Started on low dose opiates for pain, patient is not on any thyroid replacement, TSH is 6 in this admission, we have deferred initiation of synthroid to PCP Orders not resulted at time of discharge: Pending orders 08/13/17 04:00 Complete Blood Count [HEME] AM 0400 Comprehensive Metabolic Panel AM 0400 Date of Encounter: 08/12/17 Time of Encounter: 12:56 - Discharge Diagnosis (1) Sciatica Priority: Primary Status: Chronic Qualifiers: Laterality: left Qualified Code(s): M54.32 - Sciatica, left side (2) Left hip pain Priority: Primary Status: Acute (3) Fall Priority: Primary Status: Acute Qualifiers: Encounter type: initial encounter Qualified Code(s): W19.XXXA - Unspecified fall, initial encounter (4) COPD (chronic obstructive pulmonary disease) Priority: Secondary Status: Chronic Qualifiers: COPD type: unspecified COPD Qualified Code(s): J44.9 - Chronic obstructive pulmonary disease, unspecified (5) HTN (hypertension) Priority: Secondary Status: Chronic Qualifiers: Hypertension type: essential hypertension Qualified Code(s): I10 - Essential (primary) hypertension (6) HLD (hyperlipidemia) Priority: Secondary Status: Chronic Qualifiers: Hyperlipidemia type: pure hypercholesterolemia Qualified Code(s): E78.00 - Pure hypercholesterolemia, unspecified; E78.0 - Pure hypercholesterolemia (7) Thyroid disease Priority: Secondary Status: Chronic (8) DVT prophylaxis Priority: Primary Status: Resolved (9) Tobacco abuse Priority: Secondary Status: Chronic (10) Numbness and tingling of left leg Priority: Primary Status: Acute Hospital course: Ms. Torre is a 77 year old female with medical hsx f COPD, HLD, HTN, Chronic sciatica who presented for acute mechanical fall 08/09/17, d/t numbness/tingling in LLE and pain in left hip. Denied prior hx of falls. Hx of chronic sciatica and fusion of T8-L1. CT of the thoracic spine today shows no acute thoracic or lumbar spine abnormality. Chronic bilateral L5 pars defect with grade 1 anterolisthesis of L5 on S1. CXR of the pelvis shows no acute osseous abnormality. XR of the left shoulder shows no acute osseous abnormality. Minimal degenerative change. Suspected left upper lobe pulmonary nodule. D/t LLE weakness, MRI of head/brain ordered , ruled out CVA/ischemia. She was placed on Stair-step pain medications for pain mgmt. Falls/safety precautions, up with assist, bed rest w/bedside commode w/assist only. PT/OT was consulted and recommend in-patient rehab. She has no neurological deficits, as part of her wor up TSH was elevated, defer management to PCP Her other chronic medical problems are stable She was seen and evaluated this morning, no new complains, pain and tingling improved She is medically stable to be discharged to SNF Discharge discussed with: patient, nurse, case management - Time Spent with Patient Total time spent providing and/or coordinating discharge services: Less than 30 minutes - Discharge Medications Prescriptions: HYDROcodone/Acet 7.5/325 mg [[place] 7.5-325 mg] 1 tab PO Q6HR PRN 5 Days #10 tablet PRN Reason: Moderate Pain Home Medications: Albuterol Sulfate [Albuterol Inhaler] 1 puff PO Q4H PRN 02/20/17 [History] Aspirin Enteric Coated [Aspirin EC] 81 mg PO DAILY 02/20/17 [History] Cholecalciferol (D-3) [Vitamin D] 5,000 unit PO DAILY 02/20/17 [History] Diltiazem CD (24hr) [Cardizem CD] 120 mg PO DAILY 02/20/17 [History] Lisinopril 2.5 mg PO DAILY 02/20/17 [History] Multivits,Ca,Min/Iron/FA/Lycop [Centrum Men's Tablet] 1 tab PO DAILY 02/20/17 [ History] Phytonadione [Vitamin K] 100 mcg PO DAILY 02/20/17 [History] Vitamin B Complex [B Complex] 1 tab PO DAILY 02/20/17 [History] HYDROcodone/Acet 7.5/325 mg [Pe Ell 7.5-325 mg] 1 tab PO Q6HR PRN 5 Days #10 tablet 08/12/17 [Rx] Allergies/Adverse Reactions: 3 Allergy/AdvReac Type Severity Reaction Status Date / Time No Known Allergies Allergy Verified 08/09/17 17:20 Date of admission: 08/09/17 17:13 Primary care physician: Bernard Lr MD Consults: 08/09/17 17:35 Consult to Net Manager [CONS] Routine Reason for SW Consult: Please assess patient for possible home needs for post -discharge planning. 08/09/17 17:37 Consult to Physical Therapy [CONS] Routine Comment: Evaluate, develop and implement POC Reason for Consult: Patient had fall today resulting in pain in left hip and inability to ambulate. Denies falls hx. Imaging shows fxs. Please assess patient for ambulation strength, stability , safety, and possible home assistive/ rehabilitation placement needs for post-discharge planning. Does patient have active BEDREST order?: Yes Is patient medically & hemodynamically stable?: Yes Patient assessed for mobility or mobilized this visit?: No 08/09/17 18:07 Consult to Nutrition [CONS] Routine Comment: Consulting Provider: NUTRITION Reason for Dietary Consult: MST Score Other:: weight loss, lack of appetite Consult to Net Manager [CONS] Routine Reason for SW Consult: May need rehab or home health, unable to ambulate. 08/10/17 16:13 Consult to Net Manager [CONS] Routine Reason for SW Consult: LLE Sciatica. Consider acute rehab placement. Discharging clinician: Ron العلي Anticipated date of discharge: 08/12/17 - Constitutional Vitals: Temp Pulse Resp BP Pulse Ox 98 F 69 14 104/67 93 08/12/17 07:36 08/12/17 07:36 08/12/17 07:36 08/12/17 07:36 08/12/17 08:04 General appearance: Present: cooperative, A&O X 3, pleasant, no acute distress, answers questions appropriately - Head Head exam: Present: atraumatic, normocephalic - Eye Eye exam: Present: PERRL, conjuntiva pink, sclera anicteric Pupils: Present: PERRL - Neck Neck exam general surgery: Present: supple, trachea midline. Absent: lymphadenopathy - Respiratory Respiratory exam: Present: CTAB. Absent: accessory muscle use, rales, rhonchi, wheezes - Cardiovascular Cardiovascular exam: Present: RRR, +S1, +S2. Absent: diastolic murmur, gallop, rubs, systolic murmur - GI/Abdominal GI/Abdominal exam: Present: normal bowel sounds, soft, no peritoneal signs. Absent: distended, tenderness - Extremities Exam Extremities exam: Present: warm, radial pulses palpable and symmetrical. Absent : calf tenderness, cyanotic, pedal edema - Neurological Exam Neurological exam: Present: alert, CN II-XII intact, oriented X3, no focal deficits. Absent: pronater drift, facial droop, speech deficit - Skin Skin exam: Present: dry, intact - Patient Status Disposition: Transfer SNF Condition: Good Functional capacity at discharge: independent ambulation Overall status at discharge: patient is progressing back to baseline - Discharge Instructions Follow Up With: Bernard Lr MD [Primary Care Provider] - - Diet and Activity Activity: resume usual activities as tolerated Diet: low salt diet
--- NOTE | 2017-08-12 13:01 | Physician Discharge Referral ---
ExtendedCare Referral Info Transfer To: [facility] Provider in Charge: Duglas العلي Provider in Charge after Transfer: PCP Institutional Level of Care: Skilled - Diagnosis (1) Sciatica Priority: Secondary Status: Chronic (2) Left hip pain Priority: Primary Status: Acute (3) Fall Priority: Primary Status: Acute (4) COPD (chronic obstructive pulmonary disease) Priority: Secondary Status: Chronic (5) HTN (hypertension) Priority: Secondary Status: Chronic (6) HLD (hyperlipidemia) Priority: Secondary Status: Chronic (7) Thyroid disease Priority: Secondary Status: Chronic (8) DVT prophylaxis Priority: Secondary Status: Resolved (9) Tobacco abuse Priority: Secondary Status: Chronic (10) Numbness and tingling of left leg Priority: Primary Status: Acute Prognosis: Fair Aware of Diagnosis: Patient Aware of Prognosis: Patient - Transfer Medications Prescriptions: HYDROcodone/Acet 7.5/325 mg [[place] 7.5-325 mg] 1 tab PO Q6HR PRN 5 Days #10 tablet PRN Reason: Moderate Pain Home Medications: Albuterol Sulfate [Albuterol Inhaler] 1 puff PO Q4H PRN 02/20/17 [History] Aspirin Enteric Coated [Aspirin EC] 81 mg PO DAILY 02/20/17 [History] Cholecalciferol (D-3) [Vitamin D] 5,000 unit PO DAILY 02/20/17 [History] Diltiazem CD (24hr) [Cardizem CD] 120 mg PO DAILY 02/20/17 [History] Lisinopril 2.5 mg PO DAILY 02/20/17 [History] Multivits,Ca,Min/Iron/FA/Lycop [Centrum Men's Tablet] 1 tab PO DAILY 02/20/17 [ History] Phytonadione [Vitamin K] 100 mcg PO DAILY 02/20/17 [History] Vitamin B Complex [B Complex] 1 tab PO DAILY 02/20/17 [History] HYDROcodone/Acet 7.5/325 mg [[place] 7.5-325 mg] 1 tab PO Q6HR PRN 5 Days #10 tablet 08/12/17 [Rx] Allergies/Adverse Reactions: 3 Allergy/AdvReac Type Severity Reaction Status Date / Time No Known Allergies Allergy Verified 08/09/17 17:20 - Respiratory Orders Smoking Cessation: Smoking cessation has been advised. For more information, call the [place] Tobacco Quit Line at 5-933-ZSCC-NOW. - Advance Directives Code Status: Full Code - Diet Orders No Added Salt (TUTU) CERTIFICATION: I certify that the transfer of the above named patient to an Extended Care Facility is necessary for the continuing treatment of the diagnosis listed. The above information is true and accurate reflection of patient's current condition. Confidential - Redisclosure prohibited without a patient's written consent.
[2017-08-12 16:01] VITALS: BP 119/75
== END 2017-08-12 16:57 ==
LOC: EMEROO 12:41 → 3ANU 12:41 → SUATTDRO 17:13 → 3ANU 17:31
PROVIDERS: ADMIT Hospitalist; ATTEND Internal Medicine

== ENCOUNTER 2017-10-31 23:06 | Observation (INO) ==
[2017-10-31] MEDS ORDERED: Orphenadrine 60 MG/2 ML VIAL IM ONE (23:30)
[2017-10-31 23:45] LABS: Bilirubin,Urine Negative (Negative); Blood,Urine Negative (Negative); Clarity,Urine Clear (Clear); Color,Urine Yellow (Yellow); Glucose,Urine (UA) Normal (Normal); Ketones,Urine Negative (Negative); Leukocyte Esterase,Urine Negative (Negative); Nitrite,Urine Negative (Negative); Protein,Urine Negative (Neg-Trace); Specific Gravity,Urine 1.019 (1.010-1.025); Urobilinogen,Urine Normal (Normal)
--- NOTE | 2017-10-31 23:45 | Emergency Department Note ---
Disposition Clinical Impression: Sciatica of left side Disposition: Admitted As Inpatient Time of Disposition: 23:00 Back Pain HPI - General Chief Complaint: ED Back Pain/Injury Stated Complaint: Back pain Time Seen by Provider: 10/31/17 23:15 Source: patient, EMS Limitations: no limitations Nursing Notes Reviewed: Yes Vital Signs Reviewed: Yes - History of Present Illness HPI Narrative: Patient is a 77-year-old female who presents to [facility] ED with a chief complaint of severe sciatica. Patient states it started getting worse 6 days ago. She started needing to use her walker again and then today just could not get up anymore. States she has been on gabapentin and started back on Percocet. She has a follow-up with Dr. Guzman on November 13. Patient denies any nausea, vomiting, fever or chills. No chest pain, difficulty breathing, abdominal pain, problems with urination or bowel movements. Patient denies any actual leg weakness, numbness of the inner thighs or urinary retention or incontinence. Pt Subjective Complaint: back pain Onset (ago): day(s) () Duration: gradually worsening Similar Symptoms Previously: Yes Location: Other (L sacroiliac) Pain Severity: severe Quality: sharp Radiation: none Improves with: none Worsens with: movement Associated symptoms: Reports: difficulty walking. Denies: numbness, weakness, incontinence of bowel/bladder, fever, chills, abdominal pain, dysuria Treatments prior to arrival: prescription analgesics - Related Data Home Medications Medication Instructions Recorded Confirmed Albuterol Sulfate [Albuterol 1 puff PO Q4H PRN 02/20/17 11/01/17 Inhaler] Aspirin Enteric Coated [Aspirin EC] 81 mg PO DAILY 02/20/17 11/01/17 Cholecalciferol (D-3) [Vitamin D] 5,000 unit PO DAILY 02/20/17 11/01/17 Diltiazem CD (24hr) [Cardizem CD] 120 mg PO DAILY 02/20/17 11/01/17 Lisinopril 2.5 mg PO DAILY 02/20/17 11/01/17 Multivits,Ca,Min/Iron/FA/Lycop 1 tab PO DAILY 02/20/17 11/01/17 [Centrum Men's Tablet] Phytonadione [Vitamin K] 100 mcg PO DAILY 02/20/17 11/01/17 Vitamin B Complex [B Complex] 1 tab PO DAILY 02/20/17 11/01/17 Previous Rx's Medication Instructions Recorded HYDROcodone/Acet 7.5/325 mg [[place] 1 tab PO Q6HR PRN 5 Days #10 tablet 08/12/17 7.5-325 mg] Allergies Allergy/AdvReac Type Severity Reaction Status Date / Time No Known Allergies Allergy Verified 08/09/17 17:20 All systems ED: reviewed and negative except as stated. Past Medical History - Past Medical History Attestation: Yes The following information was validated with the patient. Source: patient Medical history: Reports: COPD, hyperlipidemia, hypertension, thyroid disease Surgical history: Reports: orthopedic, other (Fusion from T8-L1. Left T12 pedicle screw medial to pedicle. ) Psychiatric history: Reports: no psych history - Social History Smoking Status: Current every day smoker Smokeless Tobacco Status: No Alcohol use: Reports: none Drug use: Reports: none Physical Exam - General Limitations: no limitations General appearance: alert - Head Head exam: atraumatic, normocephalic, normal inspection - Eye Eye exam: Present: EOMI - ENT ENT exam: normal exam - Neck Neck exam: Present: normal inspection, trachea midline - Chest Chest inspection: Present: normal inspection, symmetric chest wall rise - Respiratory Respiratory exam: Present: normal lung sounds bilaterally - Cardiovascular Cardiovascular exam: Present: regular rate, normal rhythm, normal heart sounds - Abdominal Exam Abdominal exam: Present: soft, Non-Tender. Absent: tenderness, distention, guarding, rebound, rigidity - Extremities Exam Extremities exam: Absent: pedal edema - Expanded Lower Extremity Exam Hip/Pelvis exam: Present: tenderness (with palpation of L SI region ) Neurovascular/Tendon exam: Present: normal capillary refill. Absent: motor deficit, sensory deficit - Back Exam Back exam: Present: sciatic notch tenderness (L) - Neurological Exam Neurological exam: Present: alert - Psychiatric Psychiatric exam: Present: normal affect, normal mood - Skin Skin exam: Present: warm, dry, intact, normal color Course Course Narrative: Patient seen and examined. Severe sciatica in which patient is unable to ambulate at this time. She has been in inpatient rehabilitation previously but over the last 6 days has gotten much worse and states she is unable to walk at this time. We will admit for placement. Basic lab work ordered. - Reevaluation(s) Reevaluation #1: labwork unremarkable. Discussed with hospitalist Dr. Lopez who has accepted patient for admission. Time: 23:00 Vital Signs Temperature 97.2 F L 10/31/17 23:10 Pulse Rate 76 10/31/17 23:10 Respiratory Rate 16 10/31/17 23:10 Blood Pressure 115/65 10/31/17 23:10 O2 Sat by Pulse Oximetry 93 10/31/17 23:10 Temperature 97.9 F 11/01/17 03:59 Pulse Rate 65 11/01/17 03:59 Respiratory Rate 16 11/01/17 03:59 Blood Pressure 117/62 11/01/17 03:59 O2 Sat by Pulse Oximetry 93 11/01/17 03:59 Oxygen Delivery Oxygen Delivery Room Air Back Pain/Injury - Medical Records Medical records reviewed: Yes I reviewed the patient's medical records. - Lab Data Lab results reviewed: Yes I reviewed the patient's lab results. Result diagrams: 10/31/17 23:42 10/31/17 23:42 Lab Results 10/31/17 10/31/17 10/31/17 Range/Units 23:38 23:42 23:42 WBC 7.0 (4.3-11.1) K/mcL RBC 4.77 (3.82-4.97) M/mcL Hgb 14.5 (11.5-15.4) g/dL Hct 43.0 (35.3-44.9) % MCV 90.1 (83.0-100.0) fL MCH 30.4 (28.0-33.3) pg MCHC 33.7 (31.6-35.5) g/dL RDW 13.5 (11.5-14.5) % Plt Count 222 (140-400) K/mcL MPV 9.6 (9.4-12.4) fL Immature Gran % 0.3 (0-4) % Seg Neutrophils % 69.3 % Lymphocytes % 24.1 % Monocytes % 4.7 % Eosinophils % 1.3 % Basophils % 0.3 % Neutrophils # 4.9 (1.6-8.9) K/mcL Lymphocytes # 1.7 (0.6-4.6) K/mcL Monocytes # 0.3 (0.0-1.3) K/mcL Eosinophils # 0.1 (0.0-0.6) K/mcL Basophils # 0.0 (0.0-0.2) K/mcL Sodium 136 (136-145) mEq/L Potassium 4.0 (3.5-5.1) mEq/L Chloride 103 (98-107) mEq/L Carbon Dioxide 28 (23-29) mEq/L BUN 21 (8-23) mg/dL Creatinine 0.91 (0.60-1.20) mg/dL Est GFR ( Amer) > 60 (> 60) Est GFR (Non-Af Amer) 60 (> 60) BUN/Creatinine Ratio 23 (6-26) Glucose 104 (70-105) mg/dL Calculated Osmolality 285 (280-300) Calcium 9.0 (8.6-10.3) mg/dL Urine Color Yellow (Yellow) Urine Clarity Clear (Clear) Urine pH 5.0 (5.0-8.0) pH Units Ur Specific [place] 1.019 (1.010-1.025) Urine Protein Negative (Neg-Trace) mg/dL Urine Glucose (UA) Normal (Normal) mg/dL Urine Ketones Negative (Negative) mg/dL Urine Blood Negative (Negative) Urine Nitrite Negative (Negative) Urine Bilirubin Negative (Negative) Urine Urobilinogen Normal (Normal) mg/dL Ur Leukocyte Esterase Negative (Negative) Ur Culture Indicated? NO (NO)
[2017-11-01 00:16] LABS: BUN/Creatinine Ratio 23 (6-26); Blood Urea Nitrogen 21 mg/dL (8-23); Carbon Dioxide 28 mEq/L (23-29); Chloride 103 mEq/L (98-107); Glucose 104 mg/dL (70-105); Osmolality,Calculated 285 (280-300); Sodium 136 mEq/L (136-145); eGFR For African Americans > 60 (> 60); eGFR For Non-African Americans 60 (> 60)
[2017-11-01 00:27] LABS: Basophils % 0.3 %; Eosinophils # 0.1 K/mcL (0.0-0.6); Eosinophils % 1.3 %; Hemoglobin 14.5 g/dL (11.5-15.4); Immature Granulocytes % 0.3 % (0-4); Lymphocytes # 1.7 K/mcL (0.6-4.6); Lymphocytes % 24.1 %; Mean Corpuscular HGB Conc 33.7 g/dL (31.6-35.5); Mean Corpuscular Hemoglobin 30.4 pg (28.0-33.3); Mean Corpuscular Volume 90.1 fL (83.0-100.0); Mean Platelet Volume 9.6 fL (9.4-12.4); Monocytes # 0.3 K/mcL (0.0-1.3); Monocytes % 4.7 %; Neutrophils # 4.9 K/mcL (1.6-8.9); Platelet Count 222 K/mcL (140-400); Red Blood Count 4.77 M/mcL (3.82-4.97); Red Cell Distribution Width 13.5 % (11.5-14.5); Segmented Neutrophils % 69.3 %
--- NOTE | 2017-11-01 00:53 | Emergency Department Note ---
Disposition Clinical Impression: Sciatica of left side Disposition: Admitted As Inpatient Condition: Good General Adult HPI - General Chief complaint: ED Back Pain/Injury Stated complaint: Back pain Time Seen by Provider: 10/31/17 23:15 Source: patient, EMS Limitations: no limitations Nursing Notes Reviewed: Yes Vital Signs Reviewed: Yes - History of Present Illness Pain Scale: 10 - Related Data Home Medications Medication Instructions Recorded Confirmed Albuterol Sulfate [Albuterol 1 puff PO Q4H PRN 02/20/17 11/01/17 Inhaler] Aspirin Enteric Coated [Aspirin EC] 81 mg PO DAILY 02/20/17 11/01/17 Cholecalciferol (D-3) [Vitamin D] 5,000 unit PO DAILY 02/20/17 11/01/17 Diltiazem CD (24hr) [Cardizem CD] 120 mg PO DAILY 02/20/17 11/01/17 Lisinopril 2.5 mg PO DAILY 02/20/17 11/01/17 Multivits,Ca,Min/Iron/FA/Lycop 1 tab PO DAILY 02/20/17 11/01/17 [Centrum Men's Tablet] Phytonadione [Vitamin K] 100 mcg PO DAILY 02/20/17 11/01/17 Vitamin B Complex [B Complex] 1 tab PO DAILY 02/20/17 11/01/17 Previous Rx's Medication Instructions Recorded HYDROcodone/Acet 7.5/325 mg [[place] 1 tab PO Q6HR PRN 5 Days #10 tablet 08/12/17 7.5-325 mg] Allergies Allergy/AdvReac Type Severity Reaction Status Date / Time No Known Allergies Allergy Verified 08/09/17 17:20 Past Medical History - Past Medical History Medical history: Reports: COPD, hyperlipidemia, hypertension, thyroid disease Surgical history: Reports: orthopedic, other (Fusion from T8-L1. Left T12 pedicle screw medial to pedicle. ) Psychiatric history: Reports: no psych history - Social History Smoking Status: Current every day smoker Smokeless Tobacco Status: No Alcohol use: Reports: none Drug use: Reports: none Physical Exam - General Limitations: no limitations General appearance: alert Course Vital Signs Temperature 97.2 F L 10/31/17 23:10 Pulse Rate 76 10/31/17 23:10 Respiratory Rate 16 10/31/17 23:10 Blood Pressure 115/65 10/31/17 23:10 O2 Sat by Pulse Oximetry 93 10/31/17 23:10 Temperature 97.9 F 11/01/17 03:59 Pulse Rate 65 11/01/17 03:59 Respiratory Rate 16 11/01/17 03:59 Blood Pressure 117/62 11/01/17 03:59 O2 Sat by Pulse Oximetry 93 11/01/17 03:59 Oxygen Delivery Oxygen Delivery Room Air Medical Decision Making - Lab Data Result diagrams: 10/31/17 23:42 10/31/17 23:42 Lab Results 10/31/17 10/31/17 10/31/17 Range/Units 23:38 23:42 23:42 WBC 7.0 (4.3-11.1) K/mcL RBC 4.77 (3.82-4.97) M/mcL Hgb 14.5 (11.5-15.4) g/dL Hct 43.0 (35.3-44.9) % MCV 90.1 (83.0-100.0) fL MCH 30.4 (28.0-33.3) pg MCHC 33.7 (31.6-35.5) g/dL RDW 13.5 (11.5-14.5) % Plt Count 222 (140-400) K/mcL MPV 9.6 (9.4-12.4) fL Immature Gran % 0.3 (0-4) % Seg Neutrophils % 69.3 % Lymphocytes % 24.1 % Monocytes % 4.7 % Eosinophils % 1.3 % Basophils % 0.3 % Neutrophils # 4.9 (1.6-8.9) K/mcL Lymphocytes # 1.7 (0.6-4.6) K/mcL Monocytes # 0.3 (0.0-1.3) K/mcL Eosinophils # 0.1 (0.0-0.6) K/mcL Basophils # 0.0 (0.0-0.2) K/mcL Sodium 136 (136-145) mEq/L Potassium 4.0 (3.5-5.1) mEq/L Chloride 103 (98-107) mEq/L Carbon Dioxide 28 (23-29) mEq/L BUN 21 (8-23) mg/dL Creatinine 0.91 (0.60-1.20) mg/dL Est GFR ( Amer) > 60 (> 60) Est GFR (Non-Af Amer) 60 (> 60) BUN/Creatinine Ratio 23 (6-26) Glucose 104 (70-105) mg/dL Calculated Osmolality 285 (280-300) Calcium 9.0 (8.6-10.3) mg/dL Urine Color Yellow (Yellow) Urine Clarity Clear (Clear) Urine pH 5.0 (5.0-8.0) pH Units Ur Specific [place] 1.019 (1.010-1.025) Urine Protein Negative (Neg-Trace) mg/dL Urine Glucose (UA) Normal (Normal) mg/dL Urine Ketones Negative (Negative) mg/dL Urine Blood Negative (Negative) Urine Nitrite Negative (Negative) Urine Bilirubin Negative (Negative) Urine Urobilinogen Normal (Normal) mg/dL Ur Leukocyte Esterase Negative (Negative) Ur Culture Indicated? NO (NO) Attestation Statement - Attestation Attestation: I, Carl Small MD, personally evaluated this patient and discussed their management with the resident physician. I reviewed the resident's note and agree with the documented findings, medical decision making, and plan of care. 77-year-old female with history of left sciatica presents to the emergency department with a complaint of exacerbation of her back pain about one week ago. The past week she has had these a walker to get around this evening the pain became acutely worse and she has been unable to ambulate even with a walker. Pain is in the left SI joint area and radiates down the left leg. Some numbness and tingling sensation in the left leg which she has had previously. She has had injections for this pain and also has been in rehabilitation a few months ago. On examination patient is a well-developed well-nourished well-appearing elderly female in no acute distress. She is alert and oriented 3. There is no cyanosis or diaphoresis. There is tenderness palpation over the left SI joint area. Patient holds her hip flexed with her knee up to her chest and states this is the only way she can get relief from the pain. Breath sounds are clear and equal bilaterally. Heart regular rate and rhythm. Abdomen soft and nontender with normal bowel sounds. Labs reviewed. The hospitalist, Dr. Lopez, was consulted and accepted admission of the patient.
[2017-11-01] MEDS ORDERED: Acetaminophen 325 MG TABLET PO PRN (02:32)
[2017-11-01] MEDS ORDERED: *HR* HYDROcodone/Acet 5/325 mg TABLET PO PRN (02:32)
[2017-11-01] MEDS ORDERED: Naloxone 0.4 MG/ML INJ IVP PRN (02:32)
[2017-11-01] MEDS ORDERED: *HR* FentaNYL (PF) 100 MCG/2 ML VIAL IVP ONE (02:34)
[2017-11-01] MEDS ORDERED: *HR* HYDROcodone/Acet 7.5/325 mg TABLET PO PRN (02:36)
--- NOTE | 2017-11-01 02:42 | Internal Med History&Physical ---
Date of Encounter: 11/01/17 Time of Encounter: 02:00 Internal Medicine - H&P: HPI Chief complaint: Left leg pain Admitted From: Home Plans for Post Hospital Care: Home History of present illness: Ms. Torre is a 77 year old female present to ER for left leg pain. Past medical history is significant for hypertension, chronic sciatic pain. Patient has chronic sciatic pain on left side. She is following up with pain management as outpatient. Patient to present to ER today because the pain is getting worse. Patient cannot walk. Patient described the pain is from her low back radiated down to left leg. Patient denies numbness/tingling/urinary or fecal incontinence. Patient was treated with muscle relaxant in the emergency room but the pain cannot relieve. Patient was admitted for further pain management because she cannot take care of herself on this pain. Past Med Surg Social Fam HX - Past Medical History Medical history: COPD, hyperlipidemia, hypertension, thyroid disease Psychiatric history: no psych history - Past Surgical History Surgical History: orthopedic, other Additional surgical history: back 2000,tubal,colonoscopy,eye lid,celiotomy - Social History Smoking Status: Current every day smoker Packs per day: 1 Smokeless Tobacco Status: No Alcohol use: none Drug use: none - Family History Father Family Member Ethnicity: Non- Living Status: Hx Family Cancer: Yes (Colon) Mother Family Member Ethnicity: Non- Living Status: Cause of : Heart disease Hx Family Cardiac Disorders: Yes (CVA) Hx Family Neurologic Disorders: Yes (CVA) Sister Family Member Ethnicity: Non- Living Status: Still Living Hx Family Cardiac Disorders: Yes (SC) Hx Family Endocrine Disorder: Yes (DM) Internal Medicine - H&P: Meds Albuterol Sulfate [Albuterol Inhaler] 1 puff PO Q4H PRN 02/20/17 [History] Aspirin Enteric Coated [Aspirin EC] 81 mg PO DAILY 02/20/17 [History] Cholecalciferol (D-3) [Vitamin D] 5,000 unit PO DAILY 02/20/17 [History] Diltiazem CD (24hr) [Cardizem CD] 120 mg PO DAILY 02/20/17 [History] Lisinopril 2.5 mg PO DAILY 02/20/17 [History] Multivits,Ca,Min/Iron/FA/Lycop [Centrum Men's Tablet] 1 tab PO DAILY 02/20/17 [ History] Phytonadione [Vitamin K] 100 mcg PO DAILY 02/20/17 [History] Vitamin B Complex [B Complex] 1 tab PO DAILY 02/20/17 [History] HYDROcodone/Acet 7.5/325 mg [[place] 7.5-325 mg] 1 tab PO Q6HR PRN 5 Days #10 tablet 08/12/17 [Rx] 3 Allergy/AdvReac Type Severity Reaction Status Date / Time No Known Allergies Allergy Verified 08/09/17 17:20 All Systems PM: A 10-system review of systems was performed and is negative for pertinent findings except as documented above in the HPI. - Constitutional Vitals: Temp Pulse Resp BP Pulse Ox 97.6 F 64 16 116/69 91 11/01/17 02:23 11/01/17 02:23 11/01/17 02:23 11/01/17 02:23 11/01/17 02:23 General appearance: Present: mild distress, A&O X 3, answers questions appropriately - Head Head exam: Present: atraumatic, normocephalic - Eye Eye exam: Present: PERRL, conjuntiva pink, sclera anicteric Pupils: Present: PERRL - Neck Neck exam general surgery: Present: supple, trachea midline. Absent: lymphadenopathy - Respiratory Respiratory exam: Present: CTAB. Absent: accessory muscle use, rales, rhonchi, wheezes - Cardiovascular Cardiovascular exam: Present: RRR, +S1, +S2. Absent: diastolic murmur, gallop, rubs, systolic murmur - GI/Abdominal GI/Abdominal exam: Present: normal bowel sounds, soft, no peritoneal signs. Absent: distended, tenderness - Extremities Exam Extremities exam: Present: warm, radial pulses palpable and symmetrical. Absent : calf tenderness, cyanotic, pedal edema - Neurological Exam Neurological exam: Present: CN II-XII intact, oriented X3, no focal deficits. Absent: pronater drift, facial droop, speech deficit - Skin Skin exam: Present: dry, intact Internal Med - H&P Results - Labs CBC & Chem 7: 10/31/17 23:42 10/31/17 23:42 - Assessment and plan (1) Sciatica Current Visit: No Status: Chronic Assessment and plan: Patient has a history of sciatica pain. Patient is getting worse now. - Place patient on pain medication for pain control. - PTOT evaluation Qualifiers: Laterality: left Qualified Code(s): M54.32 - Sciatica, left side (2) COPD (chronic obstructive pulmonary disease) Current Visit: No Status: Chronic Assessment and plan: Continue home medication albuterol inhaler as needed. Patient has no wheezing at this point. Qualifiers: COPD type: unspecified COPD Qualified Code(s): J44.9 - Chronic obstructive pulmonary disease, unspecified (3) HTN (hypertension) Current Visit: No Status: Chronic Assessment and plan: Continue home medication lisinopril Qualifiers: Hypertension type: essential hypertension Qualified Code(s): I10 - Essential (primary) hypertension (4) DVT prophylaxis Current Visit: No Status: Resolved Assessment and plan: Heparin subcutaneously (5) Tobacco abuse Current Visit: No Status: Chronic Assessment and plan: Smoking cessation education. Patient said she does not need nicotine patch. - Time Spent With Patient Total time spent is greater than 50% in coordination of care (as documented) at patient's floor/unit and/or counseling patient: 40 minutes Greater than 35 minutes
[2017-11-01] MEDS: *HR* Heparin 5,000 UNIT/ML VIAL SQ SCH ×2 (05:57→16:28)
[2017-11-01] MEDS: (Phytonadione [Vitamin K] 100 MCG) PO SCH (10:38)
[2017-11-01] MEDS: Cholecalciferol (D-3) 1,000 UNIT TABLET PO SCH (10:39)
[2017-11-01] MEDS: Multivit/Ca/Min/Fe/FA 1 TAB TABLET PO SCH (10:39)
[2017-11-01] MEDS: Aspirin Enteric Coated 81 MG Tablet PO SCH (10:39)
--- NOTE | 2017-11-01 11:59 | Event Note ---
Date of Encounter: 11/01/17 Time of Encounter: 12:00 seen and assessed. Agree wiht plan per night time hospitalist. Pain control PRN anfd follow pT/OT recs for sciatica. Start prednisone BID. Consult pain management
[2017-11-01] MEDS: *HR* OxyCODONE Immed Rel 5 MG TABLET PO PRN ×2 (12:04→19:54)
[2017-11-01] MEDS: predniSONE 20 MG TABLET PO SCH (16:28)
[2017-11-02] MEDS: *HR* OxyCODONE Immed Rel 5 MG TABLET PO PRN (03:20)
[2017-11-02] MEDS: *HR* Heparin 5,000 UNIT/ML VIAL SQ SCH (05:49)
[2017-11-02] MEDS: (Phytonadione [Vitamin K] 100 MCG) PO SCH (08:04)
[2017-11-02] MEDS: Multivit/Ca/Min/Fe/FA 1 TAB TABLET PO SCH (08:07)
[2017-11-02] MEDS: Cholecalciferol (D-3) 1,000 UNIT TABLET PO SCH (08:07)
[2017-11-02] MEDS: Aspirin Enteric Coated 81 MG Tablet PO SCH (08:07)
[2017-11-02] MEDS: predniSONE 20 MG TABLET PO SCH (08:07)
--- NOTE | 2017-11-02 10:56 | Internal Med Progress Note ---
Date of Encounter: 11/02/17 Time of Encounter: 10:55 - Assessment and plan (1) Sciatica Current Visit: No Status: Chronic Assessment and plan: Patient has a history of sciatica pain s/p epidural injections int he past. spoke with pain management. Start on oral steroids. Obtain PT evaluation. will need outpatient follow up with pain mgmt Qualifiers: Laterality: left Qualified Code(s): M54.32 - Sciatica, left side (2) COPD (chronic obstructive pulmonary disease) Current Visit: No Status: Chronic Assessment and plan: Continue home medication albuterol inhaler as needed. Patient has no wheezing at this point. Qualifiers: COPD type: unspecified COPD Qualified Code(s): J44.9 - Chronic obstructive pulmonary disease, unspecified (3) HTN (hypertension) Current Visit: No Status: Chronic Assessment and plan: Continue home medication lisinopril Qualifiers: Hypertension type: essential hypertension Qualified Code(s): I10 - Essential (primary) hypertension (4) DVT prophylaxis Current Visit: No Status: Resolved Assessment and plan: Heparin subcutaneously (5) Tobacco abuse Current Visit: No Status: Chronic Assessment and plan: Smoking cessation education. Patient said she does not need nicotine patch. - Time Spent With Patient Total time spent is greater than 50% in coordination of care (as documented) at patient's floor/unit and/or counseling patient: - Subjective Interval history: No acute events overnight - Constitutional Vitals: Temp Pulse Resp BP Pulse Ox 98.1 F 83 18 116/72 92 11/02/17 07:13 11/02/17 07:13 11/02/17 07:13 11/02/17 07:13 11/02/17 08:12 General appearance: Present: mild distress, A&O X 3, answers questions appropriately - Head Head exam: Present: atraumatic, normocephalic - Eye Eye exam: Present: PERRL, conjuntiva pink, sclera anicteric Pupils: Present: PERRL - Neck Neck exam general surgery: Present: supple, trachea midline. Absent: lymphadenopathy - Respiratory Respiratory exam: Present: CTAB. Absent: accessory muscle use, rales, rhonchi, wheezes - Cardiovascular Cardiovascular exam: Present: RRR, +S1, +S2. Absent: diastolic murmur, gallop, rubs, systolic murmur - GI/Abdominal GI/Abdominal exam: Present: normal bowel sounds, soft, no peritoneal signs. Absent: distended, tenderness - Extremities Exam Extremities exam: Present: warm, radial pulses palpable and symmetrical. Absent : calf tenderness, cyanotic, pedal edema - Neurological Exam Neurological exam: Present: CN II-XII intact, oriented X3, no focal deficits. Absent: pronater drift, facial droop, speech deficit - Skin Skin exam: Present: dry, intact Internal Medicine: Result - Labs CBC & Chem 7: 10/31/17 23:42 10/31/17 23:42 Consult Discharge Plan - Plan Referrals: richard,Bernard Santana MD [Primary Care Provider] -
[2017-11-02 15:42] VITALS: BP 98/59
--- NOTE | 2017-11-02 16:34 | Discharge Summary ---
- NOTES TO OUTPATIENT PROVIDER Notes to Outpatient Provider: Follow up with outpatient physical therapy and pain management Date of Encounter: 11/02/17 Time of Encounter: 16:00 - Discharge Diagnosis (1) Sciatica Priority: Primary Status: Chronic Assessment and Plan: 77 year old female present to ER for left leg pain. Past medical history is significant for hypertension, chronic sciatic pain. Patient has chronic sciatic pain on left side. She follows up with pain management as outpatient. Patient to presented to the ER because the pain was getting worse and she could not walk. Patient described the pain as from her low back radiated down to left leg. Patient has a history of sciatica pain s/p epidural injections in the past. She was assessed with an acute flare of her sciatica. We spoke with pain management who recommended a short course of oral steroids, outpatient evaluation and PT evaluation. She was seen by physical therapy who recommended activities/motions with her walker to alleviate the pain and recommended outpatient physical therapy. She was discharged in a stable condition Qualifiers: Laterality: left Qualified Code(s): M54.32 - Sciatica, left side (2) COPD (chronic obstructive pulmonary disease) Priority: Secondary Status: Chronic Qualifiers: COPD type: unspecified COPD Qualified Code(s): J44.9 - Chronic obstructive pulmonary disease, unspecified (3) HTN (hypertension) Priority: Secondary Status: Chronic Qualifiers: Hypertension type: essential hypertension Qualified Code(s): I10 - Essential (primary) hypertension (4) DVT prophylaxis Priority: Secondary Status: Resolved (5) Tobacco abuse Priority: Secondary Status: Chronic Hospital course: Ms. Torre is a 77 year old female - Time Spent with Patient Total time spent providing and/or coordinating discharge services: - Discharge Medications Prescriptions: predniSONE [PredniSONE] 40 mg PO DAILY 5 Days #10 tablet Home Medications: Albuterol Sulfate [Albuterol Inhaler] 1 puff PO Q4H PRN 02/20/17 [History] Aspirin Enteric Coated [Aspirin EC] 81 mg PO DAILY 02/20/17 [History] Cholecalciferol (D-3) [Vitamin D] 5,000 unit PO DAILY 02/20/17 [History] Diltiazem CD (24hr) [Cardizem CD] 120 mg PO DAILY 02/20/17 [History] Lisinopril 2.5 mg PO DAILY 02/20/17 [History] Multivits,Ca,Min/Iron/FA/Lycop [Centrum Men's Tablet] 1 tab PO DAILY 02/20/17 [ History] Phytonadione [Vitamin K] 100 mcg PO DAILY 02/20/17 [History] Vitamin B Complex [B Complex] 1 tab PO DAILY 02/20/17 [History] HYDROcodone/Acet 5/325 mg [[place] 5-325 mg] 1 tab PO Q8H PRN 11/01/17 [History] predniSONE [PredniSONE] 40 mg PO DAILY 5 Days #10 tablet 11/02/17 [Rx] Allergies/Adverse Reactions: 3 Allergy/AdvReac Type Severity Reaction Status Date / Time No Known Allergies Allergy Verified 11/01/17 10:53 Date of admission: 11/01/17 01:35 Primary care physician: Bernard Lr MD Consults: 11/01/17 02:35 Consult to Occupational Therapy [CONS] Routine Comment: Evaluate, develop and implement POC Reason for Consult: Sciatic pain Does patient have active BEDREST order?: No Is patient medically & hemodynamically stable?: Yes Consult to Physical Therapy [CONS] Routine Comment: Evaluate, develop and implement POC Reason for Consult: Sciatica pain Does patient have active BEDREST order?: No Is patient medically & hemodynamically stable?: Yes Consult to Centerpuncher [CONS] Routine Reason for SW Consult: Cannot take care herself at home 11/01/17 12:10 Consult to Pain Management [CONS] Routine Consulting Provider: Pain Mgt Interventional Sharmila Reason for Consult: sciatica. Patient of dr glass Call Completed: Yes - Constitutional Vitals: Temp Pulse Resp BP Pulse Ox 98.0 F 73 16 98/59 96 11/02/17 15:41 11/02/17 15:41 11/02/17 15:41 11/02/17 15:41 11/02/17 15:41 General appearance: Present: mild distress, A&O X 3, answers questions appropriately - Head Head exam: Present: atraumatic, normocephalic - Eye Eye exam: Present: PERRL, conjuntiva pink, sclera anicteric Pupils: Present: PERRL - Neck Neck exam general surgery: Present: supple, trachea midline. Absent: lymphadenopathy - Respiratory Respiratory exam: Present: CTAB. Absent: accessory muscle use, rales, rhonchi, wheezes - Cardiovascular Cardiovascular exam: Present: RRR, +S1, +S2. Absent: diastolic murmur, gallop, rubs, systolic murmur - GI/Abdominal GI/Abdominal exam: Present: normal bowel sounds, soft, no peritoneal signs. Absent: distended, tenderness - Extremities Exam Extremities exam: Present: warm, radial pulses palpable and symmetrical. Absent : calf tenderness, cyanotic, pedal edema - Neurological Exam Neurological exam: Present: CN II-XII intact, oriented X3, no focal deficits. Absent: pronater drift, facial droop, speech deficit - Skin Skin exam: Present: dry, intact - Patient Status Disposition: Home, Self-Care Functional capacity at discharge: uses cane/walker Overall status at discharge: patient is progressing back to baseline - Discharge Instructions Follow Up With: Bernard Lr MD [Primary Care Provider] -
== END 2017-11-02 17:09 | disposition home or self-care (01) ==
LOC: 3NENU 23:06 → EMEROO 23:06 → 3NENU 11-01 01:45
PROVIDERS: ADMIT Internal Medicine; ATTEND Internal Medicine

== ENCOUNTER 2021-08-04 02:06 | Observation (INO) ==
[2021-08-04 02:45] LABS: Basophils % 0.1 %; Eosinophils % 0.3 %; Hematocrit 41.9 % (35.3-44.9); Hemoglobin 14.1 g/dL (11.5-15.4); Immature Granulocytes % 0.2 % (0-4); Lymphocytes # 1.6 K/mcL (0.6-4.6); Lymphocytes % 12.6 %; Mean Corpuscular HGB Conc 33.7 g/dL (31.6-35.5); Mean Corpuscular Hemoglobin 30.3 pg (28.0-33.3); Mean Corpuscular Volume 90.1 fL (83.0-100.0); Mean Platelet Volume 9.5 fL (9.4-12.4); Monocytes # 0.7 K/mcL (0.0-1.3); Monocytes % 5.4 %; Neutrophils # 10.1 K/mcL (1.6-8.9); Platelet Count 212 K/mcL (140-400); Red Blood Count 4.65 M/mcL (3.82-4.97); Red Cell Distribution Width 13.6 % (11.5-14.5); Segmented Neutrophils % 81.4 %; White Blood Count 12.4 K/mcL (4.3-11.1)
[2021-08-04 03:06] LABS: Alanine Aminotransferase 6 Units/L (7-52); Albumin 3.9 g/dL (3.5-5.7); Albumin/Globulin Ratio 1.6 (1.1-2.2); Alkaline Phosphatase 70 Units/L (34-104); Aspartate Amino Transferase 15 Units/L (13-39); BUN/Creatinine Ratio 33 (6-26); Bilirubin,Indirect 0.4 mg/dL (0.0-1.0); Bilirubin,Total 0.4 mg/dL (0.3-1.0); Blood Urea Nitrogen 27 mg/dL (8-23); Carbon Dioxide 28 mEq/L (23-29); Chloride 104 mEq/L (98-107); Globulin 2.5 g/dL (2.4-3.5); Glucose 123 mg/dL (70-105); Lipase 13 Units/L (11-82); Osmolality,Calculated 296 (280-300); Potassium 3.9 mEq/L (3.5-5.1); Sodium 140 mEq/L (136-145); Total Protein 6.4 g/dL (6.4-8.9); Troponin I < 0.03 ng/mL (< 0.04); eGFR For African Americans > 60 (> 60); eGFR For Non-African Americans > 60 (> 60)
[2021-08-04] MEDS ORDERED: Ondansetron ODT 4 MG TAB.RAPDIS SL ONE (03:31)
[2021-08-04] MEDS ORDERED: Morphine Sulfate 2 MG/ML SYRINGE IVP ONE ×2 (03:31→04:41)
[2021-08-04] MEDS ORDERED: Perflutren Lipid Microsphere 1.3 ML in 0.9 % Sodium Chloride 8.7 ML IVP PRN (05:37)
[2021-08-04] MEDS ORDERED: Isovue-370 500 ML BOTTLE IVP ONE ×3 (05:37→08:59)
[2021-08-04] MEDS ORDERED: *HR* Heparin 5,000 UNIT/ML VIAL IVP ONE (05:56)
[2021-08-04] MEDS ORDERED: *HR* Heparin 5,000 UNIT/ML VIAL IVP PRN ×2 (05:56)
[2021-08-04] MEDS ORDERED: Nitroglycerin 0.4 MG TAB.SUBL SL PRN (05:57)
[2021-08-04] MEDS ORDERED: Naloxone 0.4 MG/ML INJ IVP PRN (05:58)
[2021-08-04] MEDS ORDERED: Heparin 25,000UNIT/250ML 1/2NS 25,000 UNIT/250 ML IV.SOLN IVC SCH (06:00)
[2021-08-04] MEDS ORDERED: Acetaminophen 325 MG TABLET PO PRN (06:00)
[2021-08-04] MEDS: Famotidine 20 MG/2 ML VIAL IVP SCH ×2 (06:50→16:34)
[2021-08-04] MEDS: Aspirin Enteric Coated 81 MG Tablet PO SCH (07:42)
[2021-08-04] MEDS ORDERED: Morphine Sulfate 2 MG/ML SYRINGE IVP PRN (08:30)
[2021-08-04] MEDS ORDERED: Ondansetron 4 MG/2 ML VIAL IVP PRN (09:03)
[2021-08-04] MEDS: Pantoprazole 40 MG VIAL IVP SCH (09:59)
[2021-08-04 12:35] LABS: Bacteria,Urine Few per hpf (None-Few); Bilirubin,Urine Negative (Negative); Blood,Urine Trace (Negative); Clarity,Urine Clear (Clear); Color,Urine Colorless (Yellow); Glucose,Urine (UA) Normal (Normal); Ketones,Urine Negative (Negative); Leukocyte Esterase,Urine Negative (Negative); Mucus,Urine Few per lpf (None-Few); Nitrite,Urine Negative (Negative); Protein,Urine 30 mg/dL (Neg-Trace); RBC,Urine 0-3 per hpf (0-3); Specific Gravity,Urine > 1.030 (1.010-1.025); Squamous Epithelial Cell,Urine Few per hpf (None-Few); Urobilinogen,Urine Normal (Normal)
[2021-08-04] MEDS ORDERED: GI Cocktail 40 ML EACH PO ONE (17:24)
[2021-08-05] MEDS: Famotidine 20 MG/2 ML VIAL IVP SCH ×2 (05:31→17:34)
[2021-08-05 05:36] LABS: Hematocrit 39.3 % (35.3-44.9); Hemoglobin 13.5 g/dL (11.5-15.4); Mean Corpuscular HGB Conc 34.4 g/dL (31.6-35.5); Mean Corpuscular Volume 90.1 fL (83.0-100.0); Mean Platelet Volume 9.7 fL (9.4-12.4); Platelet Count 197 K/mcL (140-400); Red Blood Count 4.36 M/mcL (3.82-4.97); Red Cell Distribution Width 13.8 % (11.5-14.5); White Blood Count 9.3 K/mcL (4.3-11.1)
[2021-08-05 05:56] LABS: BUN/Creatinine Ratio 31 (6-26); Blood Urea Nitrogen 27 mg/dL (8-23); Calcium 8.6 mg/dL (8.6-10.3); Carbon Dioxide 25 mEq/L (23-29); Chloride 101 mEq/L (98-107); Chol/HDL Ratio 3.2 (0-4.9); Cholesterol 186 mg/dL (< 200); Glucose 81 mg/dL (70-105); HDL Cholesterol 59 mg/dL (40-59); LDL Cholesterol,Calculated 105 mg/dL (< 100); Magnesium 1.8 mg/dL (1.6-2.6); Osmolality,Calculated 284 (280-300); Potassium 3.5 mEq/L (3.5-5.1); Sodium 135 mEq/L (136-145); Triglycerides 110 mg/dL (< 150); eGFR For African Americans > 60 (> 60); eGFR For Non-African Americans > 60 (> 60)
[2021-08-05] MEDS: Pantoprazole 40 MG VIAL IVP SCH (09:03)
[2021-08-05] MEDS: Aspirin Enteric Coated 81 MG Tablet PO SCH (09:03)
[2021-08-05 10:47] LABS: Estimated Average Glucose 105 mg/dl; Hemoglobin A1C 5.3 %
[2021-08-05] MEDS: Benzonatate 100 MG CAPSULE PO PRN ×2 (15:01→21:15)
[2021-08-06 04:57] LABS: Hematocrit 37.8 % (35.3-44.9); Mean Corpuscular HGB Conc 34.4 g/dL (31.6-35.5); Mean Platelet Volume 9.7 fL (9.4-12.4); Platelet Count 184 K/mcL (140-400); Red Cell Distribution Width 13.5 % (11.5-14.5); White Blood Count 6.1 K/mcL (4.3-11.1)
[2021-08-06 05:17] LABS: Calcium 8.5 mg/dL (8.6-10.3); Potassium 3.7 mEq/L (3.5-5.1)
[2021-08-06] MEDS: Famotidine 20 MG/2 ML VIAL IVP SCH (05:44)
[2021-08-06] MEDS: Pantoprazole 40 MG VIAL IVP SCH (09:26)
[2021-08-06] MEDS: Aspirin Enteric Coated 81 MG Tablet PO SCH (09:26)
[2021-08-06 11:28] VITALS: BP 145/83; PULSE 46; TEMP 97.5; O2SAT 98
== END 2021-08-06 13:29 | disposition home or self-care (01) ==
LOC: 3BNU 02:06 → EMEROOARM 02:06 → SUATTDRO 04:17 → 3BNU 05:30
PROVIDERS: ADMIT Student in an Organized Health Care Education/Training Program; ATTEND Student in an Organized Health Care Education/Training Program